=== PATIENT | female | born 1960 | race Caucasian/White ===

== ENCOUNTER → 2021-03-10 | Outpatient (CLI) | payer OTHER ==
[2015-05-29 15:42] VITALS: BP 187/86
--- NOTE | 2021-03-10 15:57 | RAD ---
EXAM: Lumbar spine, 3 views; left hip, 2 views. HISTORY: Pain. COMPARISON: None. FINDINGS: Lumbar spine: 3 views of the lumbar spine are obtained. There is no significant listhesis. The verteb ral bodies are normal in height and the disc spaces are preserved. There is mild facet arthropathy at the lumbosacral junction. Left hip: 2 views left hip are obtained. There is no fracture, dislocation or subluxation. IMPRESSION: No acute osseous finding. Electronically signed by: Margret Goss MD (03/10/2021 3:55 PM) [id number]
== END ==
LOC: RAD 15:08
PROVIDERS: ATTEND Nurse Anesthetist, Certified Registered
DX: M47.27 Other spondylosis with radiculopathy, lumbosacral region (principal); M81.0 Age-related osteoporosis without current pathological fracture; G89.29 Other chronic pain
CPT/HCPCS: 72100; 73501